=== PATIENT | male | born 1960 | race Caucasian/White ===

== ENCOUNTER 2025-09-06 07:05 | Outpatient (RCR) | payer OTHER, SELFPAY | END 2025-09-06 23:59 | disposition home or self-care (01) | LOC: RPT 07:05 | PROVIDERS: ATTENDING PHYSICIAN Specialist; FAMILY PHYSICIAN Registered Nurse | DX: M25.511 Pain in right shoulder (principal); M25.811 Other specified joint disorders, right shoulder; Z73.6 Limitation of activities due to disability; M62.81 Muscle weakness (generalized) | CPT/HCPCS: 97110; 97162 ==